=== PATIENT | male | born 1995 | race Hispanic/Latino ===

== ENCOUNTER 2016-09-21 23:11 | Emergency (ER) | payer OTHER ==
[2016-09-22 00:25] LABS: Basophils % (Auto) 0.4 % (0.0-1.8); Eosinophils % (Auto) 2.2 % (0.0-4.3); Hematocrit 45.7 % (35.5-45.6); Hemoglobin 15.8 gm/dl (11.8-15.2); Mean Corpuscular HGB Conc 35 % (32-34); Mean Corpuscular Hemoglobin 32 pg (28-32); Mean Corpuscular Volume 93 fl (84-94); Platelet Count 252 K/mm3 (140-440); Red Blood Count 4.93 M/mm3 (3.65-5.03); Red Cell Distribution Width 12.5 % (13.2-15.2); White Blood Count 6.7 K/mm3 (4.5-11.0)
[2016-09-22 00:38] LABS: BUN/Creatinine Ratio 18.88; Blood Urea Nitrogen 17 mg/dL (9-20); Calcium 9.4 mg/dL (8.4-10.2); Carbon Dioxide 29 mmol/L (22-30); Chloride 94.5 mmol/L (98-107); Glucose 110 mg/dL (75-100); Potassium 3.7 mmol/L (3.6-5.0); Sodium 137 mmol/L (137-145)
[2016-09-22 00:39] LABS: Anion Gap 17 mmol/L
[2016-09-22 06:18] VITALS: BP 114/68
--- NOTE | 2016-09-22 06:36 | Emergency Department Report ---
HPI - General Chief Complaint: Syncope Time Seen by Provider: 09/22/16 06:28 - HPI HPI: Chief complaint: Syncope HPI: Patient is 21-year-old male who was driving up from [place] states he got out of the car to take a break went into the bathroom and felt lightheaded and tried to sit down and passed out. Patient denies any diaphoresis, chest pain, shortness of breath or headache. Patient states he had a little leg pain prior to getting out of the car but does not have any now and does not have any swelling to his legs. Patient has a history of feeling lightheaded when he stands up too quickly but no other medical history. Patient currently feels fine. Patient was only out for a minute or so. Mode of arrival: private car Source: Patient and patient's Began: Occurred prior to admission Duration: One minute Context: See above Quality: Pain-free Severity: 0 out of 10 Improved with: Nothing Worsened with: Nothing Associated signs and symptoms: No nausea, vomiting, diarrhea, fever, cough or cold ED Past Medical Hx - Past Medical History Previous Medical History?: No - Surgical History Past Surgical History?: No - Social History Smoking Status: Never Smoker Substance Use Type: Alcohol - Medications Home Medications: Home Medications Medication Instructions Recorded Confirmed Last Taken Type No Known Home Medications [No 09/22/16 09/22/16 Unknown History Reported Home Medications] ED Review of Systems ROS: Stated complaint: SYNCOPAL EPISODE Other details as noted in HPI ROS Constitutional: No fever ENT: No uri symptoms Cardiovascular: No chest pain Respiratory: No sob or cough GI: No nausea vomiting or diarrhea : No dysuria frequency or urgency, Skin: No rash Neuro: No focal weakness or numbness Psych: No depression Gaetano/lymph: No edema Physical Exam - Physical Exam Vital Signs: Vital Signs 09/21/16 09/22/16 09/22/16 23:42 05:01 06:17 Temperature 98.1 F 98.7 F Pulse Rate 93 H 92 H 88 Respiratory 18 18 18 Rate Blood Pressure 110/61 130/78 Blood Pressure 114/68 [Left] O2 Sat by Pulse 100 96 98 Oximetry Physical Exam: GENERAL: The patient is well-developed well-nourished . HEENT: Normocephalic. Atraumatic. Extraocular motions are intact. Patient has moist mucous membranes. NECK: Supple. No meningitic signs are noted. There is no adenopathy noted. CHEST/LUNGS: Clear to auscultation. There is no respiratory distress noted. HEART/CARDIOVASCULAR: Regular. There is no tachycardia. There is no gallop rub or murmur. ABDOMEN: Abdomen is soft, nontender. Patient has normal bowel sounds. There is no abdominal distention. SKIN: There is no rash. There is no edema. There is no diaphoresis. NEURO: The patient is awake, alert, and oriented. The patient is cooperative. The patient has no focal neurologic deficits. The patient has normal speech. MUSCULOSKELETAL: There is no tenderness or deformity. There is no limitation range of motion. There is no evidence of acute injury. ED Course Vital Signs 09/21/16 09/22/16 09/22/16 23:42 05:01 06:17 Temperature 98.1 F 98.7 F Pulse Rate 93 H 92 H 88 Respiratory 18 18 18 Rate Blood Pressure 110/61 130/78 Blood Pressure 114/68 [Left] O2 Sat by Pulse 100 96 98 Oximetry - Reevaluation(s) Reevaluation #1: 09/22/16 Patient's orthostatics within normal limits. Patient given a liter of normal saline and his d-dimer was negative. ED Medical Decision Making - Lab Data Result diagrams: 09/22/16 00:08 09/22/16 00:08 Laboratory Tests 09/22/16 09/22/16 09/22/16 00:08 03:06 07:03 D-Dimer < 135.00 Calcium 9.4 Troponin T < 0.010 < 0.010 Laboratory Tests 09/22/16 07:03 D-Dimer < 135.00 - EKG Data -: EKG Interpreted by Me EKG shows normal: sinus rhythm Rate: normal (76) - EKG Data When compared to previous EKG there are: previous EKG unavailable Interpretation: normal EKG Critical care attestation.: If time is entered above; I have spent that time in minutes in the direct care of this critically ill patient, excluding procedure time. ED Disposition Clinical Impression: Vasovagal syncope Disposition: DISCHARGED TO HOME OR SELFCARE Is pt being admited?: No Does the pt Need Aspirin: No Condition: Stable Instructions: Syncope (ED) Referrals: PRIMARY CARE, [Primary Care Provider] - 3-5 Days Time of Disposition: 08:05
[2016-09-22] MEDS ORDERED: NACL 0.9% 1000 ML IV ONE (06:38)
== END 2016-09-22 08:15 | disposition home or self-care (01) ==
LOC: ED 23:11
DX: R55 Syncope and collapse (principal); R42 Dizziness and giddiness
CPT/HCPCS: 36415; 80048; 82962; 84484; 85025; 85379; 93005; 93010; 99284; J7030